=== PATIENT | female | born 1980 | race Native Hawaiian/Other Pacific Islander ===

== ENCOUNTER 2017-11-16 15:35 | Observation (INO) | payer OTHER, SELFPAY ==
[2017-11-16] MEDS ORDERED: Lactated Ringer's 1,000 ML IV ONE (16:01)
[2017-11-16 16:28] LABS: BASO % 0.3 % (0.0-2.0); EOS % 0.3 % (0.0-4.0); HEMOGLOBIN 13.2 g/dL (11.0-16.0); LYMPH # 1.3 K/uL (1.0-4.3); LYMPH % 14.4 % (20.0-40.0); MEAN CELL VOLUME 93.2 fL (81.0-99.0); MEAN CORPUSCULAR HEMOGLOBIN 32.6 pg (27.0-31.0); MEAN PLATELET VOLUME 6.9 fL (7.2-11.7); MONO # 0.4 K/uL (0.0-0.8); MONO % 4.4 % (0.0-10.0); NEUT # 7.2 K/uL (1.8-7.0); NEUT % 80.6 % (50.0-75.0); RBC 4.05 Mil/uL (3.80-5.20); RED CELL DISTRIBUTION WIDTH 12.3 % (11.5-14.5)
[2017-11-16 16:38] LABS: ALBUMIN 3.5 g/dL (3.5-5.0); ALT/SGPT 28 U/L (9-52); AST/SGOT 25 U/L (14-36); BLOOD UREA NITROGEN 8 mg/dL (7-17); CALCIUM 8.7 mg/dl (8.6-10.4); GFR AFRICAN-AMERICAN > 60; GFR NON-AFRICAN AMERICAN > 60
[2017-11-16 16:39] LABS: INR 0.9; PROTHROMBIN TIME 9.9 SECONDS (9.7-12.2)
[2017-11-16] MEDS ORDERED: Betamethasone Soluspan 30 mg/5mL Inj Susp IM ONE (16:45)
[2017-11-16 16:46] LABS: ALB/GLOB RATIO 1.3 (1.0-2.1)
[2017-11-16 16:58] LABS: SQUAMOUS EPITHIAL 4 /hpf (0-5); URINE BACTERIA OCC (<OCC); URINE BILIRUBIN NEGATIVE (NEGATIVE); URINE BLOOD 3+ (NEGATIVE); URINE CLARITY Clear (Clear); URINE COLOR Yellow (YELLOW); URINE GLUCOSE (UA) 2+ mg/dL (Normal); URINE LEUKOCYTE ESTERASE 2+ Leu/uL (Negative); URINE NITRATE NEGATIVE (NEGATIVE); URINE PROTEIN NEGATIVE (NEGATIVE); URINE UROBILINOGEN NORMAL mg/dL (0.2-1.0)
--- NOTE | 2017-11-16 17:52 | US ---
Limited OB ultrasound/biophysical profile Comparison: None available. Technique: Real-time ultrasound was performed through the pelvis. Findings: There is a single living fetus in cephalic presentation. Amniotic fluid volume is within normal limits. Anterior fundal placenta. The placenta is not previa. There are no adnexal masses or cysts evident. Cervix length measures approximately 3.3 cm. Measurements and calculations: Fetus has a composite sonographic age of 34 weeks 0 days. This calculation is based on the biparietal diameter, head circumference, abdominal circumference, and femur length. Estimated heart rate 145 beats per min. Biophysical Profile movements 2/2 breathing 2/2 tone 2/2 Amniotic fluid 2/2 Total score impression: 07/06 Impression: Single living fetus with a composite sonographic age of 34 weeks 0 days. Estimated heart rate 145 beats per min. Biophysical profile of 8 out of 8.
[2017-11-16] MEDS ORDERED: Magnesium Sulfate 4 gm/100 ml 4 GM/100 ML BAG IVPB ONE ×2 (18:09→18:55)
--- NOTE | 2017-11-16 18:34 | OBADHP ---
Datetime: 11/16/2017 15:58 Admit Comment, IP Provider: chief complaint-vaginal bleeding HPI 37 y/o at 33.6 wga with c/o noticing bleeidng today when she wiped.similar episode happen ed 1 week ago as per patient Patient denies abdominal pain reports active movement course AMA; care with [facility];no avaialble PMH denies PSH csection obgyn hx ; csectionx1 Social hx denies tobacco,alcohol or illicit drug use Exam see exam section A/P Patient with vaginal bleeding -check labs -andrew -ultrasound -monitor closely 6.25 pm Ultrasound done.bpp 8/8;vertex; images reviewed.anterior placenta H/H 13.2/37.8 PLT 209k/ul Patient re-examined.cervix unchanged No more active bleeding seen toco occ ctx Case discussed with dr foster .recommend magnesium sulfate for 24 hours for neuroprotection and ce stephanie patient already s/p first dose of celestone will start magnesium sulfate plan of care discussed with patient Extremities - PN: Normal Abdomen - PN: Normal Lungs - PN: Normal Heart - PN: Normal Neurologic - PN: Normal General - PN: Normal Contraction Comments Provider: occ Comments, ACOG Physical Exam: pelvic exam vulva no lesions vagina dark blood in avult; no active bleeding seen cervix 1/thick/-3 abdoemn soft and nontender; no rebound Gestation - Est Wks by US: 33.6 IP Hx Assessment: The History has been Reviewed and is Current Vital Signs Provider: Reviewed IP Chief Complaint: Vaginal bleeding FHR Category Provider Fetus A: Category I Dilatation, Provider: 1 Effacement, Provider: 30 Station, Provider: -3 EGA AdmitDate IP: 33.6 IP Adm Impression: , intrauterine IP Admit Plan: Admit to unit
[2017-11-16] MEDS ORDERED: Magnesium Sulfate 20 gm 20,000 MG/500 ML BAG IV ONE (21:15)
[2017-11-16] MEDS: Magnesium Sulfate 20 gm 20 GM/500 ML BAG IV SCH (21:52)
[2017-11-17] MEDS ORDERED: Lactated Ringer's 1,000 ML IV SCH (01:30)
[2017-11-17] MEDS: Magnesium Sulfate 20 gm 20 GM/500 ML BAG IV SCH (06:56)
[2017-11-17 15:33] LABS: BASO % 0.2 % (0.0-2.0); HEMOGLOBIN 11.9 g/dL (11.0-16.0); LYMPH % 7.7 % (20.0-40.0); MEAN CELL VOLUME 93.3 fL (81.0-99.0); MEAN CORPUSCULAR HEMOGLOBIN 33.2 pg (27.0-31.0); MEAN CORPUSCULAR HGB CONC 35.6 g/dL (33.0-37.0); MEAN PLATELET VOLUME 6.9 fL (7.2-11.7); MONO # 0.5 K/uL (0.0-0.8); MONO % 3.7 % (0.0-10.0); NEUT # 11.1 K/uL (1.8-7.0); NEUT % 88.4 % (50.0-75.0); PLATELET COUNT 190 K/uL (130-400); RBC 3.59 Mil/uL (3.80-5.20); RED CELL DISTRIBUTION WIDTH 12.6 % (11.5-14.5); WHITE BLOOD COUNT 12.6 K/uL (4.8-10.8)
[2017-11-17] MEDS ORDERED: ceFAZolin IV 2 gm in Dextrose 2 GM/50 ML BAG IVPB ONE (15:48)
[2017-11-17 16:01] LABS: LYMPHOCYTE 9 % (20-40); MONOCYTE 1 % (0-10); NEUTROPHIL 90 % (50-75); PLATELET ESTIMATE NORMAL (NORMAL); TOTAL CELLS COUNTED 100
[2017-11-17 16:02] LABS: ANISOCYTOSIS SLIGHT; HYPOCHROMIC SLIGHT; POIKILOCYTOSIS SLIGHT
[2017-11-17] MEDS ORDERED: Betamethasone Soluspan 30 mg/5mL Inj Susp IM ONE (16:37)
[2017-11-17] MEDS ORDERED: ceFAZolin 2 GM in Sodium Chloride 0.9% 100 ML IVPB ONE (17:00)
--- NOTE | 2017-11-17 17:56 | OBPN ---
Datetime: 11/17/2017 15:09 IP Progress Plan Other: Betamethasone administration IP Progress Impression Other: Third trimester vaginal bleeding; previous IP Procedures: Sterile Vag Exam IP Progress Plan: Continue present management; Tocolysis Membranes, Provider: Intact Contraction Comments Provider: 4-8 minutes FHR - Baseline A Provider: 140 Gestation - Est Wks by US: 34.0 Presentation-Admit: Vertex IP Progress Note Comment: Patient evaluated at approximately 1125 hours, and again at 1505 hours. E ach time, patient reports (+) AFM; denies abdominal pain/Contractions or vaginal bleeidng. (+) hungry . Of note, Javier had advised loan underwriter oflow B.P. approximately 1040hours, 90s/mid-to hig-40s. Magnesium had been decreased to 1 gram/hour; IV bolus of NS had been administerd/ BP increased to 110/70s - no w maintaining high 80s/mi-high 40s (this appears to be patient's baseline) P.E.: at 1140hours Lungs: CTA bilaterally Cardiac: RRR, normal S1, S2 Abdomen: Gravid, soft, non tender im all quadrants. Healed Pfannenstiel scar with mild keloidosis. Extremities: no calf tenderness; no edema of extremities DTRS: 2+ upper and lower extremiteis, bilaterally Cervical exam performed 1505 hours: no change from that on admission - no active bleeding. Assessment: HD#2, 37 y.o. P1, previous C/S, third trimester vaginal bleeding, S/P 1 of 2 doses of betamethasone; on magnesium sulphate for neuroprotection. Uterine contractions - no cervical change. S/P ultrasound 11/16/17 - no evidence of abruption; EGA 34 weeks, anterior/fundal placenta. Low BP: most likely due to magnesium; possible also due to supine position (aorto-caval compression). Categor y 1 tracing. Patient is clinically stable. Plan: 1) CBC now, 2) Complete dexamethasone 3) Continue magnesium to complete 24 hours 4) Continue continuous EFM 5) Anticipate discharge home Addendun: 1525 hours H/H 11.9/33.5; WBC 12.6; plt 190. U/A noted for leuk esterase 2+ Assessment: H/H relatively stable (slight decrease most likely due to IV hydration). WBC elevated - due to steroids. Early UTI. Stable Plan: 1) Ancef 2 grams IVPB x 1 now 2) Patient may eat 3) Observe Addendum: 1748 hours - patient has completed betamethasone. No vaginal bleeding. (+) AFM; denies abdomnal pain Using [employer] translating service, [place], [place] [id number], discharge instructions given as follows: 1) discharge to home 2) complete p.o. antibiotics for UTI: Keflex 500 mg 1 tab po BID x 7 days 3) keep scheduled appointment, 11/25/17 4) Reviewed S/S PTL, including but not limited to heavy vaginal bleeding. 5) No intercourse, no prolonged standing , minimize duration and intensitity of ADLs 6) Counseled on recommendation to go to [facility] institution if concern for PTL is real, prior to 36 completed weeks. Patient and expressed an understanding and agree; all questions were anwered. NICHD Accel Fetus A IP Provider: 10X10 FHR Category Provider Fetus A: Category I NICHD Variability Prov Fetus A: Moderate 6-25bpm Dilatation, Provider: 1 Effacement, Provider: long Station, Provider: -3 NICHD Decel Fetus A IP Provider: None Datetime: 11/16/2017 15:58 Vital Signs Provider: Reviewed
[2017-11-17 21:53] VITALS: BP 94/46; PULSE 101; RESP 18; TEMP 98; O2SAT 96
== END 2017-11-17 17:52 | disposition hospice, home (50) ==
LOC: C.EROB 15:35 → INTOOBSV 18:09 → C.4D 18:09 → UNDOADMIN 18:11
PROVIDERS: ADMIT Student in an Organized Health Care Education/Training Program; ATTEND Student in an Organized Health Care Education/Training Program
DX: O46.93 Antepartum hemorrhage, unspecified, third trimester (principal); O23.43 Unspecified infection of urinary tract in pregnancy, third trimester; O09.523 Supervision of elderly multigravida, third trimester; Z3A.33 33 weeks gestation of pregnancy; O9A.213 Injury, poisoning and certain other consequences of external causes complicating pregnancy, third trimester; T38.0X5A Adverse effect of glucocorticoids and synthetic analogues, initial encounter
CPT/HCPCS: 76815; 76818; 80053; 81001; 83735; 85025; 85610; 85730; 86850; 86900; 96372; 99284; G0378; J0690; J0702; J3475; J7120

== ENCOUNTER 2017-12-22 05:21 | Inpatient (IN) | payer OTHER ==
[2017-12-22 06:05] LABS: BASO % 0.2 % (0.0-2.0); EOS % 0.4 % (0.0-4.0); HEMOGLOBIN 14.1 g/dL (11.0-16.0); LYMPH # 1.4 K/uL (1.0-4.3); LYMPH % 13.4 % (20.0-40.0); MEAN CELL VOLUME 92.9 fL (81.0-99.0); MEAN CORPUSCULAR HEMOGLOBIN 32.7 pg (27.0-31.0); MEAN CORPUSCULAR HGB CONC 35.2 g/dL (33.0-37.0); MEAN PLATELET VOLUME 7.5 fL (7.2-11.7); MONO # 0.5 K/uL (0.0-0.8); MONO % 4.7 % (0.0-10.0); NEUT # 8.2 K/uL (1.8-7.0); NEUT % 81.3 % (50.0-75.0); RBC 4.31 Mil/uL (3.80-5.20); RED CELL DISTRIBUTION WIDTH 12.5 % (11.5-14.5); WHITE BLOOD COUNT 10.1 K/uL (4.8-10.8)
[2017-12-22 06:15] LABS: SQUAMOUS EPITHIAL 22 /hpf (0-5); URINE BACTERIA FEW (<OCC); URINE BILIRUBIN NEGATIVE (NEGATIVE); URINE BLOOD NEGATIVE (NEGATIVE); URINE CLARITY Hazy (Clear); URINE COLOR Amber (YELLOW); URINE GLUCOSE (UA) NORMAL (Normal); URINE LEUKOCYTE ESTERASE 2+ Leu/uL (Negative); URINE NITRATE NEGATIVE (NEGATIVE); URINE PROTEIN 1+ mg/dL (NEGATIVE); URINE UROBILINOGEN NORMAL mg/dL (0.2-1.0)
[2017-12-22 06:28] LABS: ALB/GLOB RATIO 1.2 (1.0-2.1); ALBUMIN 3.6 g/dL (3.5-5.0); ALT/SGPT 21 U/L (9-52); AST/SGOT 20 U/L (14-36); BLOOD UREA NITROGEN 8 mg/dL (7-17); CALCIUM 8.8 mg/dl (8.6-10.4); GFR AFRICAN-AMERICAN > 60; GFR NON-AFRICAN AMERICAN > 60
--- NOTE | 2017-12-22 06:53 | OBADHP ---
Datetime: 12/22/2017 06:46 Admit Comment, IP Provider: chief complaint-scheduled csection HPI 37 y/o at 39 wga here for scheduled csection cousre complicated by AMA; PNC with [facility] PMH denies PSH denies OBGYN HX Social hx denies tobacco,alcohol or illcitd rug use Exam see exam section A/P 37 y/o at 39 wga here for scheduled csection -admit -see orders Pelvic Type - PN: Adequate Extremities - PN: Normal Abdomen - PN: Normal Back - PN: Normal Lungs - PN: Normal Heart - PN: Normal Neurologic - PN: Normal General - PN: Normal Contraction Comments Provider: occ Vital Signs Provider: Reviewed; Within Normal Limits IP Chief Complaint: Scheduled Section FHR Category Provider Fetus A: Category I Genitourinary Exam: Normal DTRs - PN: Normal EGA AdmitDate IP: 39.0 IP Adm Impression: Term, intrauterine IP Admit Plan: Admit to unit; Initiate Section protocol Datetime: 11/17/2017 15:09 Presentation-Admit: Vertex FHR - Baseline A Provider: 140 Membranes, Provider: Intact Gestation - Est Wks by US: 34.0 NICHD Variability Prov Fetus A: Moderate 6-25bpm NICHD Accel Fetus A IP Provider: 10X10 NICHD Decel Fetus A IP Provider: None Dilatation, Provider: 1 Effacement, Provider: long Station, Provider: -3
[2017-12-22] MEDS ORDERED: Sodium Citrate/Citric Acid 15 ml Sol PO ONE (06:55)
[2017-12-22] MEDS ORDERED: cefOXitin IV 2 gm in Dextrose 2 GM/50 ML BAG IVPB ONE ×2 (06:55→07:55)
[2017-12-22] MEDS ORDERED: Lactated Ringer's 1,000 ML IV SCH (07:00)
[2017-12-22] MEDS ORDERED: ePHEDrine 50 mg/ml Inj ONE (07:35)
[2017-12-22] MEDS ORDERED: Morphine 1 mg/ml preservative-free Inj(Duramorph) ONE (07:36)
[2017-12-22] MEDS ORDERED: Sodium Citrate/Citric Acid 15 ml Sol ONE (07:55)
[2017-12-22] MEDS ORDERED: Oxytocin 20 units in LR 2,000 ML IV ONE (08:09)
[2017-12-22] MEDS ORDERED: HYDROmorphone 0.5 mg/0.5 ml ISec IVP PRN (09:08)
[2017-12-22] MEDS ORDERED: DiphenhydrAMINE 50 mg/ml Inj IVP PRN (09:08)
--- NOTE | 2017-12-22 12:09 | OBDS ---
DELIVERY PERSONNEL Delivery Doctor: Yann Garcia MD Scrub Nurse: Amanda Sales Multiple Sclerosis Nurse: Lizzy Arrington RN Anesthesiologist: elizabeth MATERNAL INFORMATION Delivery Anesthesia: Spinal Medications in Delivery: pitocin 20 Estimated Blood Loss (ml): 700 Placenta Cultured: No Maternal Complications: None Provider Comments: baby deloverd in [place]. endometrium clean no com LABOR SUMMARY EDC: 12/29/2017 00:00 No. Babies in Womb: 1 Attempted: No Labor Anesthesia: None LABOR INFORMATION Oxytocin: N/A Group B Beta Strep: Done, Result Unknown Steroids Given: None Reason Steroids Not Administered: Not Applicable MEMBRANES Membranes Rupture Method: Artificial Rupture of Membranes: 12/22/2017 08:33 Length of Rupture (hrs): 0.02 Amniotic Fluid Color: Clear Amniotic Fluid Amount: Moderate Amniotic Fluid Odor: Normal STAGES OF LABOR Stage 3 hrs: 0 Stage 3 min: 1 VAGINAL DELIVERY Episiotomy: None Laceration Extension: N/A Laceration Type: None CSECTION DELIVERY Primary Indication: Repeat Elective Secondary Indication: N/A CSection Urgency: Elective CSection Incidence: Repeat Labor: No Labor Elective: Elective CSection Incision: Lower Uterine Transverse BABY A INFORMATION Infant Delivery Date/Time: 12/22/2017 08:34 Method of Delivery: Born in Route : No : N/A Forceps: N/A Vacuum Extraction: N/A Shoulder Dystocia : No SHOULDER DYSTOCIA BABY A Infant Delivery Date/Time: 12/22/2017 08:34 PRESENTATION/POSITION BABY A Presentation: Cephalic Cephalic Presentation: Vertex Vertex Position: Right Occipital Anterior Breech Presentation: N/A PLACENTA INFORMATION BABY A Placenta Delivery Time : 12/22/2017 08:35 Placenta Method of Delivery: Manual Removal Placenta Status: Delivered SCORES BABY A Heart Rate 1 min: >100 bpm Resp Effort 1 min: Good Cry Reflex Irritability 1 min: Cough or Sneeze or Pulls Away Muscle Tone 1 min: Active Motion Color 1 min: Body Cowgill, Extremities Blue Resuscitation Effort 1 min: Tactile Stimulation SCORE 1 MIN: 9 Heart Rate 5 min: >100 bpm Resp Effort 5 min: Good Cry Reflex Irritability 5 min: Cough or Sneeze or Pulls Away Muscle Tone 5 min: Active Motion Color 5 min: Body Cowgill, Extremities Blue SCORE 5 MIN: 9 INFANT INFORMATION BABY A Gestational Age at Delivery: 39.0 Gestational Status: Term Infant Outcome : Liveborn Infant Condition : Stable Sex: Female IDENTIFICATION/MEDS BABY A ID Band Number: [id number] ID Band Location: Left Leg; Left Arm Sensor Applied: Yes Sensor Number: [id number] Sensor Location : Cord Clamp WEIGHT/LENGTH BABY A Infant Birthweight (gms): 3860 Infant Weight (lb): 8 Weight (oz): 8 Infant Length Inches: 19.50 Infant Length cms: 49.5 CORD INFORMATION BABY A No. Cord Vessels: 3 Nuchal Cord : Around Neck x1, Loose Cord Blood Taken: Yes Infant Suction: Mouth; Nose ASSESSMENT BABY A Complications: None Physical Findings at Delivery: Within Normal Limits Respirations: Appears Normal Tire Maintenance Technician/ALS Called : No Infant Care By: dr anderson Transferred To: Remains with Mother
--- NOTE | 2017-12-22 15:51 | PCM.SURG1 ---
Surgeon's Initial Post Op Note - Surgeon's Notes Surgeon: dr martinez Data Assistant: dr mills Type of Anesthesia: Spinal Anesthesia Administered By: dr vann Pre-Operative Diagnosis: 37yr at 39weks elective c/s Operative Findings: see the op reort Post-Operative Diagnosis: same Operation Performed: repeat section Specimen/Specimens Removed: cord blood Estimated Blood Loss: EBL {In ML}: 700 Blood Products Given: N/A Drains Used: No Drains Post-Op Condition: Good Date of Surgery/Procedure: 12/22/17 Time of Surgery/Procedure: 16:00
[2017-12-22] MEDS ORDERED: cefOXitin IV 2 gm in Dextrose 2 GM/50 ML BAG IVPB SCH (16:30)
[2017-12-22] MEDS: cefOXitin 2 GM in Sodium Chloride 0.9% 100 ML IVPB SCH (17:06)
--- NOTE | 2017-12-22 23:35 | OP ---
PROCEDURE DATE: PREOPERATIVE DIAGNOSIS: A 37-year-old 2, para 1 at 39 weeks for repeat , elective section. POSTOPERATIVE DIAGNOSIS: A 37-year-old 2, para 1 at 39 weeks for repeat , elective section. SURGEON: Yann Garcia MD BELLOWS ASSEMBLER: Dr. Wang who was present throughout the surgery for exposure, retraction, and pushing at the time of the delivery. TYPE OF ANESTHESIA: Spinal. ANESTHESIA ADMINISTERED BY: DrIvonne . COMPLICATIONS: None. ESTIMATED BLOOD LOSS: 700 mL. PROCEDURES PERFORMED: Repeat section. DESCRIPTION OF PROCEDURE: After informed consent was obtained, the patient was brought to the operating room, placed on the table where spinal anesthesia was given. Once the anesthesia was given, the patient was prepped and draped in the normal sterile fashion. At the site of the previous skin incision, an incision was made with a knife, the subcutaneous cut with a Bovie. The fascia was then excised on both the sides using curved Belle scissors. The fascia was from the site of the rectus muscle, at the site of the umbilicus and at the site of the pubic bone, rectus muscle was . Peritoneum was incised and we went into the abdominal cavity. Bladder blade was placed and bladder flap was created. Lower uterine segment incision was made with a knife, it was extended using Bovie and curved Belle scissors. Baby was delivered in a RACHEL position. There was a cord around the baby, which was loosely reduced. Cord was clamped and cut, baby was handed to the awaiting semiconductor assembler. Placenta delivered manually. Uterus was exteriorized and cleared of all clots and debris. Uterine incision was closed using #1 Vicryl in running interlocking fashion. Second layer was closed with the same stitch. After that cul-de-sac was cleared of all the clots and debris. Uterus, tubes, and ovaries looked back to normal. After that, peritoneum was closed using 2-0 Vicryl in running interlocking fashion. Muscle was closed using 2-0 Vicryl in running interlocking fashion. The fascia was then closed using #1 Vicryl in running interlocking fashion. Subcutaneous tissue was closed with #1 Vicryl in interrupted fashion. Skin was closed using linaa. The patient tolerated the procedure well. Lap, sponge, and instrument counts were correct x2. Yann Garcia MD
[2017-12-23] MEDS: cefOXitin 2 GM in Sodium Chloride 0.9% 100 ML IVPB SCH (00:29)
[2017-12-23] MEDS ORDERED: Oxycodone/Acetaminophen 5/325 mg Tab PO PRN ×4 (05:18→09:08)
[2017-12-23 08:52] LABS: BASO % 0.1 % (0.0-2.0); EOS % 0.2 % (0.0-4.0); HEMOGLOBIN 12.5 g/dL (11.0-16.0); LYMPH # 0.9 K/uL (1.0-4.3); LYMPH % 7.8 % (20.0-40.0); MEAN CELL VOLUME 94.5 fL (81.0-99.0); MEAN CORPUSCULAR HEMOGLOBIN 33.2 pg (27.0-31.0); MEAN CORPUSCULAR HGB CONC 35.1 g/dL (33.0-37.0); MEAN PLATELET VOLUME 7.3 fL (7.2-11.7); MONO # 0.4 K/uL (0.0-0.8); MONO % 3.8 % (0.0-10.0); NEUT % 88.1 % (50.0-75.0); PLATELET COUNT 181 K/uL (130-400); RBC 3.77 Mil/uL (3.80-5.20); RED CELL DISTRIBUTION WIDTH 12.4 % (11.5-14.5); WHITE BLOOD COUNT 11.3 K/uL (4.8-10.8)
[2017-12-23] MEDS ORDERED: Bisacodyl 5mg EC Tab PO ONE (09:11)
[2017-12-23] MEDS: Prenatal Multivit/Folic Acid/Iron Tab PO SCH (09:16)
[2017-12-23] MEDS: Simethicone 80 mg Chewtab PO SCH ×4 (09:16→21:28)
[2017-12-23 11:32] LABS: LYMPHOCYTE 6 % (20-40); MONOCYTE 4 % (0-10); NEUTROPHIL 90 % (50-75); PLATELET ESTIMATE NORMAL (NORMAL); TOTAL CELLS COUNTED 100
[2017-12-23 11:33] LABS: ANISOCYTOSIS SLIGHT; HYPOCHROMIC SLIGHT; POLYCHROMIC SLIGHT; TOXIC GRANULATION PRESENT
[2017-12-23 11:34] LABS: PLATELET CLUMPS PRESENT
[2017-12-23 11:35] LABS: LARGE PLATELETS PRESENT
--- NOTE | 2017-12-24 09:39 | OBPPN ---
Datetime: 12/24/2017 09:07 PP Pain Prov: Within normal limits PP Nausea Prov: Denies PP Flatus Prov: Yes PP BM Prov: Yes PP Breasts Prov: Normal PP Heart Prov: Normal PP Lungs Prov: Normal PP Abdomen/Uterus Prov: Normal PP Lochia Prov: Normal PP Vulva/Perineum Prov: Not Done PP Extremities Prov: Normal PP C/S Incision Prov: Normal PP Progress Prov: Normal PP Comments Phys Exam Prov: Abdomen: soft, mild tenderness, +BS x 4, fundus firm and at level of umb ilicus, incision with liana - dry, clean, intact PP Impression Prov: Normal progression PP Plan Prov: Continue present management PP Progress Note Prov: Patient seen and examined at bedside. Patient says she is having minimal lowe r abdominal pain mostly with breast feeding. Patient is having no nausea or vomiting and was able to eat. Patient has had flatus and 1 bowel movement yesterday. Patient is able to walk around Patient valdez s used 2 pads. Patient is breast feeding. Patient denies fevers, chills, shortness of breath, chest p ain, vomiting. Labs 12/23/17: 11.3>12.5/35.6<181 VS: T: 98.7 P:78 BP:100/59 R:20 O2:97%RA PE: Gen: NAD, AAOx3 Cardio: RRR, S1, S2 Pulm: CTA bilaterally Abd: soft, mild tenderness, + BS x 4, firm fundus at umbilicus. Mild lochia rubra A/P: 37 y/o F s/p low transverse POD #2 1. Stable, afebrile 2. Pain control with Percocet and Motrin 3. Encourage ambulation and hydration 4. Encourage breast feeding 5. Continue post- management 6. Plans discussed with attending Gela Goff PGY1 Attending Note: Patient seen and evaluated with Resident. I agree with the above. Plan: as above Vital Signs Provider PP: Reviewed Datetime: 12/23/2017 07:36 PP CVA Tenderness Prov: Normal
[2017-12-24] MEDS: Prenatal Multivit/Folic Acid/Iron Tab PO SCH (09:44)
[2017-12-24] MEDS: Simethicone 80 mg Chewtab PO SCH ×2 (09:45→22:35)
--- NOTE | 2017-12-25 09:16 | OBPPN ---
Datetime: 12/25/2017 09:11 PP Pain Prov: Within normal limits PP Nausea Prov: Denies PP Flatus Prov: Yes PP Breasts Prov: Normal PP Heart Prov: Normal PP Lungs Prov: Normal PP Abdomen/Uterus Prov: Normal PP Lochia Prov: Normal PP Vulva/Perineum Prov: Normal PP CVA Tenderness Prov: Normal PP Extremities Prov: Normal PP C/S Incision Prov: Normal PP Comments Phys Exam Prov: Abd: Soft, NT, BS- Present UT- Firm Incision: Clean and dry PP Impression Prov: Normal progression PP Plan Prov: Discharge Vital Signs Provider PP: Reviewed Datetime: 12/23/2017 07:36 PP Progress Note Prov: Patient seen and examined at bedside sitting up in chair. Patient says she do es not have pain after recieving her Percocet. Patient had some nausea yesterday, but none today. Cheryl goff has had flatus, but no bowel movements. Patient has not walked around yet, but is able to sit in the bed. Patient has used 3 pads. Patient is breast feeding. Patient denies fevers, chills, shortnes s of breath, chest pain, vomiting. VS: T: 97.8 P: 85 BP: 100/59 PE: Gen: NAD, AAOx3 Cardio: RRR, S1, S2 Pulm: CTA bilaterally Abd: soft, mild tenderness, + BS x 4, firm fundus at umbilicus A/P: 37 y/o F s/p low transverse POD #1 1. Stable, afebrile 2. Pain control with Percocet and Motrin 3. Encourage ambulation and hydration 4. Encourage breast feeding 5. Continue post- management 6. Plans discussed with attending Gela Goff, PGY1 Pt seen and examined with Resident and I Agree with the above.
--- NOTE | 2017-12-25 09:20 | OBDCSUM ---
Datetime: 12/25/2017 09:17 Discharged to, Provider: Home Follow up at, Provider: OB Office Disch Instr Activity: Normal activity Disch Instr Diet: Regular Discharge Instructions, Provider: Routine instructions given Discharge Diagnosis, Provider: Term Delivered Discharge Time: 12/25/2017 09:17 Follow up in weeks, Provider: 2 weeks Disch Referrals: None Contraception discussed, Prov: Yes Discharge Comment, Provider: S/P Uncomplicated Repeat Section, Clinically Stable. Discharge Diagnosis Prov Other: S/P Uncomplicated Repeat Section, Clinically Stable. Contraception after Delivery: Undecided
[2017-12-25] MEDS: Prenatal Multivit/Folic Acid/Iron Tab PO SCH (09:53)
[2017-12-25] MEDS: Simethicone 80 mg Chewtab PO SCH (09:56)
[2017-12-25 21:02] VITALS: BP 99/58; PULSE 76; RESP 18; TEMP 97; O2SAT 98
== END 2017-12-25 16:00 | disposition home or self-care (01) | DRG 371 ==
LOC: C.4D 05:21 → C.4M 11:23
PROVIDERS: ADMIT Student in an Organized Health Care Education/Training Program; ATTEND Student in an Organized Health Care Education/Training Program
PROC: 10D00Z1 Extraction of Products of Conception, Low, Open Approach (ICD-10-PCS; principal; 2017-12-22)
DX: O34.211 Maternal care for low transverse scar from previous cesarean delivery (principal); O69.81X0 Labor and delivery complicated by cord around neck, without compression, not applicable or unspecified; Z37.0 Single live birth; Z3A.39 39 weeks gestation of pregnancy